=== PATIENT | male | born 1990 | race Two or more races ===

== ENCOUNTER 2017-05-19 12:02 | Emergency (ER) | payer SELFPAY ==
[~2017-05-19] VITALS: Ht 170.2 cm; Wt 52.2 kg
--- NOTE | 2017-05-19 12:10 | NUR ---
PT AMBULATORY TO ER BED 12. PRESENTS W/ R SIDE FACIAL SWELLING. DENIES PAIN OR SOB. NOTICED THIS MORNING UPON WAKING UP. CONCERN ABOUT ALLERGIC REACTION. PT IS ALFREDO TAFOYA. AWAITING MD BUCK.
[2017-05-19] MEDS ORDERED: diphenhydrAMINE HCL 50 MG/ML VIAL IM ONE (12:30)
[2017-05-19] MEDS ORDERED: predniSONE 10 MG TABLET PO ONE (12:30)
[2017-05-19] MEDS ORDERED: ALBUTEROL FS 2.5 MG/0.5 ML VIAL.NEB NEB ONE (12:30)
--- NOTE | 2017-05-19 12:31 | NUR ---
NAZARIO KEENAN AT BEDSIDE FOR EVAL.
[2017-05-19] MEDS ORDERED: diphenhydrAMINE HCL 50 MG/ML VIAL ONE (12:38)
[2017-05-19] MEDS ORDERED: predniSONE 20 MG TABLET ONE (12:39)
--- NOTE | 2017-05-19 12:50 | NUR ---
RT AT BEDSIDE FOR BREATHING TREATMENT.
[2017-05-19] MEDS ORDERED: ALBUTEROL FS 2.5 MG/0.5 ML VIAL.NEB ONE (12:52)
--- NOTE | 2017-05-19 13:22 | NUR ---
Patient discharged to home in stable condition. Written and verbal after care instructions given. Patient verbalizes understanding of instruction.
[2017-05-19 13:23] VITALS: BP 132/98
== END 2017-05-19 13:24 | disposition home or self-care (01) ==
LOC: ER 12:09
DX: T78.40XA Allergy, unspecified, initial encounter (principal); L01.00 Impetigo, unspecified; J45.909 Unspecified asthma, uncomplicated; Y92.89 Other specified places as the place of occurrence of the external cause
CPT/HCPCS: 94640; 96372; 99283; A4606; J1200; J7512; Z7610